=== PATIENT | male | born 2000 | race African-American/Black ===

== ENCOUNTER 2021-10-17 07:13 | Emergency (ER) | payer OTHER ==
[~2021-10-17] VITALS: Ht 180.3 cm; Wt 62.0 kg
[2021-10-17 07:45] VITALS: BP 140/90
[2021-10-17 09:32] LABS: BASOPHILS % 1.2 % (0.0-2.0); EOSINOPHILS % 3.8 % (0.0-5.0); HEMATOCRIT. 44.3 % (42.0-52.0); HEMOGLOBIN. 14.7 g/dL (14.0-18.0); LYMPHOCYTES % 29.2 % (20.0-50.0); MEAN CORPUSCULAR HEMOGLOBIN 29.5 pg (28.0-32.0); MEAN CORPUSCULAR VOLUME 89.1 fL (80.0-94.0); MEAN PLATELET VOLUME 7.2 fl (7.4-10.4); MONOCYTES % 8.4 % (2.0-8.0); NEUTROPHILS % 57.4 % (40.0-76.0); PLATELET 346 x1000/uL (130-400); RED BLOOD CELL COUNT 4.97 mill/uL (4.7-6.1); RED CELL DISTRIBUTION WIDTH 12.4 % (11.6-14.6)
[2021-10-17 09:38] LABS: CHLORIDE 100 mEq/L (98-107)
[2021-10-17] MEDS ORDERED: IBUP-2029 MT (10:08)
[2021-10-17] MEDS ORDERED: CEPH500C2 MT (10:08)
== END 2021-10-17 10:50 | disposition left against medical advice (07) ==
LOC: ER 07:13 → EDBD 07:13 → ER 10:50
DX: L03.116 Cellulitis of left lower limb (principal); E11.9 Type 2 diabetes mellitus without complications; Z88.1 Allergy status to other antibiotic agents
CPT/HCPCS: 36415; 80053; 85025; 99283